=== PATIENT | female | born 1980 | race Caucasian/White ===

== ENCOUNTER 2018-04-11 13:54 | Emergency (ER) | payer OTHER ==
[2018-04-11] MEDS ORDERED: Sodium Chloride 0.9% 1000 ML 1,000 ML IV STA (14:27)
[2018-04-11] MEDS ORDERED: Sodium Chloride 0.9% 1000 ML 1,000 ML ONE (14:28)
--- NOTE | 2018-04-11 14:35 | ERPHSYRPT ---
- History of Present Illness Time Seen by Provider: 04/11/18 14:30 Historian: patient Exam Limitations: no limitations Patient Subjective Stated Complaint: Right flank pain Triage Nursing Assessment: Pt A&O x3, complains of right flank pain, vitals wnl , pulses normal, stated that she has had a fever the past couple of days, denies blood in urine, bowel sounds heard in all 4 quadrants, doesn't appear to be in any distress Physician History: This is a 38-year-old white female with history of endometriosis ovarian cysts degenerative disc disease osteoarthritis kidney stones. Who is on chronic pain medication she arrives with complaints of pain in her right flank symptoms for 5 days she states she's had dysuria no hematuria she states she feels like she's had a fever. She apparently had gone to Dr. Don's office had been given an injection of Toradol IM 60 mg and had been sent to the hospital to get a CT of the abdomen. Patient apparently decided that she would like to go through the ER. Patient arrives with complaint of pain in her right flank she states that she did receive a prescription for hydrocodone of acetaminophen 10/325 on March 26, 2018 but she had taken all the tablets. Patient is not vomiting. Past medical history includes endometriosis, ovary and cyst, degenerative disc disease, osteoarthritis, kidney stones Past surgical history includes tubal ligation Timing/Duration: day(s) (5 days), constant Activities at Onset: none Quality: sharpness Abdominal Pain Onset Location: flank (right flank) Pain Radiation: no radiation Severity of Pain-Max: moderate Severity of Pain-Current: moderate Associated Symptoms: back (right flank pain), other (dysuria), No diarrhea, No fever/chills, No fatigue, No headache, No heartburn, No loss of appetite, No nausea, No neck pain, No rash, No shortness of breath, No syncope, No vomiting, No weakness Previous symptoms: no prior history Allergies/Adverse Reactions: No Known Drug Allergies Allergy (Verified 04/11/18 14:10) - Review of Systems Constitutional: Fever, No Chills, No Fatigue, No Lethargy, No Malaise, No Night Sweats, No Weakness, No Weight Loss Eyes: No Symptoms Ears, Nose, & Throat: No Symptoms Respiratory: No Cough, No Dyspnea Cardiac: No Chest Pain, No Edema, No Syncope Abdominal/Gastrointestinal: Other (right flank pain), No Abdominal Pain, No Nausea, No Vomiting, No Diarrhea, No Constipation, No Hematemesis, No Hematochezia, No Melena, No Dysphagia Genitourinary Symptoms: Dysuria, Flank Pain (right flank pain), No Frequency, No Hematuria, No Hesitancy, No Incontinence, No Urgency, No Urinary Retention, No Musculoskeletal: Back Pain (right flank pain), No Neck Pain Skin: No Rash Neurological: No Symptoms Psychological: No Symptoms Endocrine: No Symptoms All Other Systems: Reviewed and Negative - Past Medical History Pertinent Past Medical History: Yes Musculoskeletal History: Arthritis, Degenerative Disk Disease Female Reproductive Disorders: Endometriosis Other Medical History: herniated discs, kidney stones - Past Surgical History Past Surgical History: Yes Female Surgical History: Tubal Ligation Other Surgical History: nose sinus surgery - Social History Smoking Status: Current some day smoker Exposure to second hand smoke: Yes Drug Use: marijuana Patient Lives Alone: No - Female History Hx Now: No - Nursing Vital Signs Nursing Vital Signs: Initial Vital Signs Temperature 99.2 F 04/11/18 13:58 Pulse Rate 92 H 04/11/18 13:58 Blood Pressure 103/71 04/11/18 13:58 O2 Sat by Pulse Oximetry 99 04/11/18 13:58 Pain Scale Pain Intensity 7 - Physical Exam General Appearance: mild distress Eye Exam: PERRL/EOMI, eyes nml inspection Ears, Nose, Throat Exam: normal ENT inspection Neck Exam: normal inspection, non-tender, supple, full range of motion Respiratory Exam: normal breath sounds, lungs clear, No respiratory distress Cardiovascular Exam: regular rate/rhythm, normal heart sounds Gastrointestinal/Abdomen Exam: soft, No tenderness, No mass Back Exam: normal range of motion, CVA tenderness (right flank tenderness), No vertebral tenderness Extremity Exam: normal inspection, normal range of motion, pelvis stable Neurologic Exam: alert, oriented x 3, cooperative, health services manager II-XII nml as tested, normal mood/affect, nml cerebellar function, sensation nml, No motor deficits Skin Exam: normal color, warm, dry SpO2 Interpretation: normal (99%) SpO2: 99 Oxygen Delivery: Room Air - Course Nursing assessment & vital signs reviewed: Yes - CT Exams Abdomen/Pelvis CT Interpretation: Discussed w/radiologist (CT abdomen and pelvis: Impression: 1. Enlarged, edematous right kidney with minimal hydronephrosis and perinephric stranding without calculus. Rule out recent passage of calculus versus inflammatory/infectious process. nonobstructing left renal calculus. 2. 6 cm right ovarian cyst with small cul-de-sac fluid presume rupture/ leaking. 3 small pericardial effusion.) Ordered Tests: Active Orders 24 hr Category Date Time Status IV Insertion STAT Care 04/11/18 14:27 Active ABDOMEN AND PELVIS W/0 CONTRAS [CT] Stat Exams 04/11/18 15:03 Completed AMYLASE Stat Lab 04/11/18 14:05 Completed BLOOD CULTURE Stat Lab 04/11/18 15:45 Received CBC W DIFF Stat Lab 04/11/18 14:05 Completed CMP Stat Lab 04/11/18 14:05 Completed CULTURE,URINE Stat Lab 04/11/18 15:00 Received HCG QUALITATIVE,SERUM Stat Lab 04/11/18 14:05 Completed LIPASE Stat Lab 04/11/18 14:05 Completed UA W/ MICROSCOPIC Stat Lab 04/11/18 15:00 Completed Urine Triage Profile Stat Lab 04/11/18 14:28 Completed Medication Summary Discontinued Medications Generic Name Dose Route Start Last Admin Trade Name Freq PRN Reason Stop Dose Admin Sodium Chloride 1,000 mls @ 999 mls/hr 04/11/18 14:27 04/11/18 15:42 Sodium Chloride 0.9% 1000 Ml IV 04/11/18 15:27 Infused .Q1H1M STA Infusion Sodium Chloride Confirm 04/11/18 14:28 Sodium Chloride 0.9% 1000 Ml Administered 04/11/18 14:29 Dose 1,000 mls @ ud .ROUTE .STK-MED ONE Ceftriaxone Sodium/Dextrose 1 g in 50 mls @ 100 mls/hr 04/11/18 15:35 16:07 Rocephin 1 Gm-D5w 50 Ml Bag IV 04/11/18 16:04 100 mls/hr STAT STA 100 mls/hr Administration Ceftriaxone Sodium/Dextrose Confirm 04/11/18 15:42 Rocephin 1 Gm-D5w 50 Ml Bag Administered 04/11/18 15:43 Dose 1 g in 50 mls @ ud IV .STK-MED ONE Lab/Rad Data: Laboratory Result Diagrams 04/11/18 14:05 04/11/18 14:05 Laboratory Results 04/11/18 04/11/18 04/11/18 Range/Units 15:00 14:28 14:05 WBC (4.0-10.5) K/mm3 RBC (4.1-5.4) M/mm3 Hgb (12.0-16.0) gm/dl Hct (35-47) % MCV (78-100) fl MCH (26-32) pg MCHC (32-36) g/dl RDW (11.5-14.0) % Plt Count (150-450) K/mm3 MPV (6-9.5) fl Gran % (36.0-66.0) % Eos # (Auto) (0-0.5) Absolute Lymphs (auto) (1.0-4.6) Absolute Monos (auto) (0.0-1.3) Lymphocytes % (24.0-44.0) % Monocytes % (0.0-12.0) % Eosinophils % (0.00-5.0) % Basophils % (0.0-0.4) % Absolute Granulocytes (1.4-6.9) Basophils # (0-0.4) Sodium (137-145) mmol/L Potassium (3.5-5.1) mmol/L Chloride (98-107) mmol/L Carbon Dioxide (22-30) mmol/L Anion Gap (5-15) MEQ/L BUN (7-17) mg/dL Creatinine (0.52-1.04) mg/dL Estimated GFR ML/MIN Glucose (74-106) mg/dL Calcium (8.4-10.2) mg/dL Total Bilirubin (0.2-1.3) mg/dL AST (14-36) U/L ALT (0-35) U/L Alkaline Phosphatase (38-126) U/L Serum Total Protein (6.3-8.2) g/dL Albumin (3.5-5.0) g/dL Amylase (30-110) U/L Lipase (23-300) U/L Serum , Qual NEGATIVE (Negative) Ur Collection Type VOID Urine Color YELLOW (YELLOW) Urine Appearance CLOUDY (CLEAR) Urine pH 5.0 (5-6) Ur Specific [place] 1.010 (1.005-1.025) Urine Protein 2+ (Negative) Urine Ketones TRACE (NEGATIVE) Urine Blood 250 (0-5) Scout/ul Urine Nitrite NEGATIVE (NEGATIVE) Urine Bilirubin NEGATIVE (NEGATIVE) Urine Urobilinogen NORMAL (0-1) mg/dL Ur Leukocyte Esterase 2+ (NEGATIVE) Urine Microscopic RBC 0-2 (0-2) /HPF Urine Microscopic WBC >100 (0-5) /HPF Ur Epithelial Cells MODERATE (FEW) /HPF Urine Bacteria MODERATE (NEGATIVE) /HPF Urine Culture Reflexed YES (NO) Urine Glucose NEGATIVE (NEGATIVE) mg/dL Urine Opiates Level POSITIVE (NEGATIVE) Ur Methadone NEGATIVE (NEGATIVE) Urine Barbiturates NEGATIVE (NEGATIVE) Ur Phencyclidine (PCP) NEGATIVE (NEGATIVE) Urine Amphetamine NEGATIVE (NEGATIVE) U Benzodiazepine Level POSITIVE (NEGATIVE) Urine Cocaine NEGATIVE (NEGATIVE) Urine Marijuana (THC) POSITIVE (NEGATIVE) Specimen Received 04/11/18 1500 04/11/18 04/11/18 Range/Units 14:05 14:05 WBC 13.9 H (4.0-10.5) K/mm3 RBC 3.94 L (4.1-5.4) M/mm3 Hgb 11.9 L (12.0-16.0) gm/dl Hct 35.6 (35-47) % MCV 90.4 (78-100) fl MCH 30.2 (26-32) pg MCHC 33.4 (32-36) g/dl RDW 12.6 (11.5-14.0) % Plt Count 218 (150-450) K/mm3 MPV 11.8 H (6-9.5) fl Gran % 84.3 H (36.0-66.0) % Eos # (Auto) 0.05 (0-0.5) Absolute Lymphs (auto) 0.89 L (1.0-4.6) Absolute Monos (auto) 1.20 (0.0-1.3) Lymphocytes % 6.4 L (24.0-44.0) % Monocytes % 8.6 (0.0-12.0) % Eosinophils % 0.4 (0.00-5.0) % Basophils % 0.3 (0.0-0.4) % Absolute Granulocytes 11.70 H (1.4-6.9) Basophils # 0.04 (0-0.4) Sodium 134 L (137-145) mmol/L Potassium 4.2 (3.5-5.1) mmol/L Chloride 99 (98-107) mmol/L Carbon Dioxide 24 (22-30) mmol/L Anion Gap 15.4 H (5-15) MEQ/L BUN 12 (7-17) mg/dL Creatinine 0.86 (0.52-1.04) mg/dL Estimated GFR > 60.0 ML/MIN Glucose 105 (74-106) mg/dL Calcium 9.6 (8.4-10.2) mg/dL Total Bilirubin 0.80 (0.2-1.3) mg/dL AST 24 (14-36) U/L ALT 24 (0-35) U/L Alkaline Phosphatase 71 (38-126) U/L Serum Total Protein 7.2 (6.3-8.2) g/dL Albumin 4.1 (3.5-5.0) g/dL Amylase < 30 L (30-110) U/L Lipase 11 L (23-300) U/L Serum , Qual (Negative) Ur Collection Type Urine Color (YELLOW) Urine Appearance (CLEAR) Urine pH (5-6) Ur Specific [place] (1.005-1.025) Urine Protein (Negative) Urine Ketones (NEGATIVE) Urine Blood (0-5) Scout/ul Urine Nitrite (NEGATIVE) Urine Bilirubin (NEGATIVE) Urine Urobilinogen (0-1) mg/dL Ur Leukocyte Esterase (NEGATIVE) Urine Microscopic RBC (0-2) /HPF Urine Microscopic WBC (0-5) /HPF Ur Epithelial Cells (FEW) /HPF Urine Bacteria (NEGATIVE) /HPF Urine Culture Reflexed (NO) Urine Glucose (NEGATIVE) mg/dL Urine Opiates Level (NEGATIVE) Ur Methadone (NEGATIVE) Urine Barbiturates (NEGATIVE) Ur Phencyclidine (PCP) (NEGATIVE) Urine Amphetamine (NEGATIVE) U Benzodiazepine Level (NEGATIVE) Urine Cocaine (NEGATIVE) Urine Marijuana (THC) (NEGATIVE) Specimen Received - Progress Progress: improved Progress Note: 04/11/18 14:35 38-year-old white female arrives with complaint of right flank pain for 5 days no nausea no vomiting she does state she's been having dysuria. He was seen initially by her family doctor in the office was given an injection of Toradol 60 mg IM she was sent to the hospital with anticipation of a getting a CT scan through radiology however the patient decided to go through the emergency room instead. Patient has chronic back pain she receives hydrocodone 10/325 from her family doctor she states she hasn't filled this for several months however review of the patient's inspect report going back to June 2017 shows regular refills of this #90 tablets monthly this stops for 2 months after December 13, 2017 when she received #90 tablets while she states she was in [place], it then resumed on March 26, 2018 when she received 90 tablets of hydrocodone/acetaminophen 103 25 Will go ahead and start patient on normal saline obtain CBC CMP amylase lipase UA urine drug screen. I have told the patient is very unlikely that she will get any narcotic analgesia on discharge as she is are really receiving this on a regular basis from her family doctor and needs to get these from him. Patient did already receive Toradol 60 mg IM in the office just prior to arrival. 04/11/18 15:40 Patient with white count of over 13,000, greater than 100 white cells per high- power field in patient's urine. CT of the abdomen and pelvis is ordered and pending results. Blood cultures are ordered. Patient is receiving IV normal saline. Rocephin 1 g IV ordered after blood cultures obtained. Awaiting CT result 04/11/18 16:11 CT of the abdomen and pelvis shows enlarged/edematous right kidney with minimal hydronephrosis and perinephric stranding without calculus. Rule out recent passage of calculus versus inflammatory infectious process. There is also a nonobstructing left renal calculus. There is also a 6 cm right ovarian cyst with small cul-de-sac fluid present rupture/leaking cyst. And a small pericardial effusion. I've discussed the patient's case with Dr. Don Patient has already received Rocephin and IV normal saline she has received Toradol at Dr. Don's office. . Will give patient morphine 4 mg here in the emergency room patient wants to go home. Will send her home with Cipro 500 mg orally twice a day for 10 days. Will give patient [place] 5/325 mg #12 one orally every 4-6 hours as needed for pain. Dr. Don is aware the patient had used her narcotic analgesia prior to scheduled date. And is agreeable to her receiving this. Will have patient follow-up with her family doctor. - Departure Time of Disposition: 16:14 Departure Disposition: Home Clinical Impression: Right flank pain UTI (urinary tract infection) Qualifiers: Urinary tract infection type: acute pyelonephritis Qualified Code(s): N10 - Acute pyelonephritis Ovarian cyst Qualifiers: Laterality: right Qualified Code(s): N83.201 - Unspecified ovarian cyst, right side Condition: Fair Critical Care Time: No Referrals: MAIA DON MD [Primary Care Provider] - Additional Instructions: Return home. Plenty of fluids. Cipro 500 mg orally twice a day for 10 days. [place] 5/325 #12 one orally every 4-6 hours as needed for pain. Follow-up with Dr. Don call and arrange for appointment. Return for acute distress or for severe symptoms. Prescriptions: Ciprofloxacin [Cipro 500 MG] 500 mg PO BID #20 tablet Hydrocodone/Acetaminophen [[place] 5-325 Tablet] 1 tab PO Q4-6HPRN PRN #12 tablet MDD 6 tablets PRN Reason: Pain
[2018-04-11 14:41] LABS: ALBUMIN 4.1 g/dL (3.5-5.0); ALKALINE PHOSPHATASE 71 U/L (38-126); AMYLASE < 30 U/L (30-110); ANION GAP 15.4 MEQ/L (5-15); BLOOD UREA NITROGEN 12 mg/dL (7-17); CHLORIDE 99 mmol/L (98-107); Calcium 9.6 mg/dL (8.4-10.2); Carbon Dioxide 24 mmol/L (22-30); Creatinine 1 0.86 mg/dL (0.52-1.04); Glucose 105 mg/dL (74-106); LIPASE 11 U/L (23-300); Potassium 4.2 mmol/L (3.5-5.1); SGOT/AST 24 U/L (14-36); SGPT/ALT 24 U/L (0-35); SODIUM 134 mmol/L (137-145); Total Protein 7.2 g/dL (6.3-8.2)
[2018-04-11 14:44] LABS: BASOPHIL % 0.3 % (0.0-0.4); Basophil (Absolute #) 0.04 (0-0.4); Eosinophil % 0.4 % (0.00-5.0); Eosinophil (Absolute #) 0.05 (0-0.5); Granulocytes % 84.3 % (36.0-66.0); Hematocrit 35.6 % (35-47); Hemoglobin 11.9 gm/dl (12.0-16.0); Lymphocyte (Absolute #) 0.89 (1.0-4.6); Lymphocytes % 6.4 % (24.0-44.0); Mean Cell Volume 90.4 fl (78-100); Mean Corpuscular Hemoglobin 30.2 pg (26-32); Mean Corpuscular Hgb Concent. 33.4 g/dl (32-36); Mean Platelet Volume 11.8 fl (6-9.5); Monocytes % 8.6 % (0.0-12.0); Platelet Count 218 K/mm3 (150-450); Red Blood Count 3.94 M/mm3 (4.1-5.4); Red Cell Distribution Width 12.6 % (11.5-14.0); White Blood Count 13.9 K/mm3 (4.0-10.5)
[2018-04-11 15:13] LABS: Amphetamine,Urine NEGATIVE (NEGATIVE); Barbiturate,Urine NEGATIVE (NEGATIVE); Benzodiazepine,Urine POSITIVE (NEGATIVE); Cocaine,Urine NEGATIVE (NEGATIVE); Methadone,Urine NEGATIVE (NEGATIVE); Opiate,Urine POSITIVE (NEGATIVE); PCP,Urine NEGATIVE (NEGATIVE); THC,Urine POSITIVE (NEGATIVE)
[2018-04-11 15:18] LABS: Appearance CLOUDY (CLEAR); Bilirubin NEGATIVE (NEGATIVE); Blood 250 Ery/ul (0-5); Glucose NEGATIVE (NEGATIVE); Ketones TRACE (NEGATIVE); Leukocyte Esterase 2+ (NEGATIVE); Nitrite NEGATIVE (NEGATIVE); Protein,Urine Dip 2+ (Negative); Urobilinogen NORMAL mg/dL (0-1)
[2018-04-11 15:19] LABS: Bacteria MODERATE /HPF (NEGATIVE); Epithelial Cells MODERATE /HPF (FEW); RBC 0-2 /HPF (0-2); WBC >100 /HPF (0-5)
[2018-04-11] MEDS ORDERED: ROCEPHIN 1 Gm-D5w 50 ml Bag** 1 G/50 ML IVPB IV STA (15:35)
[2018-04-11] MEDS ORDERED: ROCEPHIN 1 Gm-D5w 50 ml Bag** 1 G/50 ML IVPB IV ONE (15:42)
--- NOTE | 2018-04-11 15:59 | XRAY ---
Indication: Right flank/right lower quadrant pain 7-8 days. Multiple contiguous axial images obtained through the abdomen and pelvis without contrast using renal stone protocol. Comparison: None There is mild bibasilar fibrosis/scarring and tiny right effusion. No suspicious pulmonary mass or infiltrate. Heart is not enlarged with small pericardial effusion. Right kidney appears mildly enlarged and edematous with minimal hydronephrosis and mild inferior perinephric stranding. No calculus in the right upper collecting system, ureter, or empty urinary bladder. Findings possibly explained by recent passage of calculus or inflammatory/infectious process. 1 cm nonobstructing left mid renal calculus. Noncontrasted stomach and bowel loops appear nonobstructed. Normal appendix best seen on reformatted images. 6 cm right adnexal cyst probably ovary in etiology. Small cul-de-sac fluid presumed from rupture/leaking cyst. Remaining liver, gallbladder, pancreas, spleen, adrenal glands, uterus, and aorta appear unremarkable for noncontrast exam. Osseous structures intact. Impression: 1. Enlarged/edematous right kidney with minimal hydronephrosis and perinephric stranding without calculus. Rule out recent passage of calculus versus inflammatory/infectious process. Nonobstructing left renal calculus. 2. 6 cm right ovary cyst with small cul-de-sac fluid presumed rupture/leaking cyst. 3. Small pericardial effusion. CT DI 13.78
[2018-04-11] MEDS ORDERED: MORPHINE SULFATE 4 MG INJ IV ONE (16:10)
[2018-04-11] MEDS ORDERED: MORPHINE SULFATE 4 MG INJ ONE (16:14)
[2018-04-11 16:21] VITALS: BP 99/56; PULSE 73; O2SAT 94
== END 2018-04-11 16:27 | disposition home or self-care (01) ==
LOC: ED 13:54
DX: R10.9 Unspecified abdominal pain (principal); N10 Acute pyelonephritis; R30.0 Dysuria; N13.2 Hydronephrosis with renal and ureteral calculous obstruction; N83.201 Unspecified ovarian cyst, right side; I31.3 Pericardial effusion (noninflammatory)
CPT/HCPCS: 36000; 36415; 74176; 80053; 80307; 81000; 82150; 83690; 84703; 85025; 87040; 87077; 87086; 87186; 96360; 96365; 96374; 99284; J0696; J2270